=== PATIENT | female | born 1990 | race Caucasian/White ===

== ENCOUNTER 2016-07-13 10:29 | Outpatient (CLI) | payer OTHER ==
--- NOTE | 2016-07-13 12:39 | RAD ---
CHEST PA AND LATERAL: History: 26-year-old female with costochondritis. FINDINGS: Heart size is normal. The lungs are clear. No pneumonia, edema, or other acute process. IMPRESSION: No acute intrathoracic disease. POS: [facility]
== END 2016-07-13 10:30 | disposition home or self-care (01) ==
LOC: MADRAD 10:29
PROVIDERS: ATTEND Family Medicine
DX: M94.0 Chondrocostal junction syndrome [Tietze] (principal)
CPT/HCPCS: 71020

== ENCOUNTER 2016-09-01 13:56 | Outpatient (CLI) | payer OTHER ==
[2016-09-01 14:34] LABS: #Basophils 0.1 thou/uL (0.0-0.2); #Eosinphils 0.1 thou/uL (0.0-0.7); #Lymphocytes 2.6 thou/uL (1.20-3.40); #Monocytes 0.5 thou/uL (0.11-0.59); %Basophils 1.3 % (0.0-1.0); %Eosinophils 1.1 % (0.0-10.0); %Lymphocytes 25.1 % (21.0-51.0); %Monocytes 4.9 % (0.0-10.0); %Neutrophils 67.5 % (42.0-75.0); Hemoglobin 14.3 g/dL (12.0-16.0); Mean Corpuscular HGB CONC 34.7 g/dL (32.0-36.0); Mean Corpuscular Hemoglobin 30.2 pg (27.0-31.0); Mean Corpuscular Volume 87.1 fl (81.0-99.0); Mean Platelet Volume 8.3 fL (7.4-10.4); Platelet Count 296 thou/uL (130-400); RBC Distribution Width 12.3 % (11.5-14.5); Red Blood Cell (RBC) Count 4.75 mill/uL (4.20-5.40); White Blood Cell (WBC) Count 10.4 thou/uL (4.8-10.8)
--- NOTE | 2016-09-01 15:56 | RAD ---
CHEST 2 VIEWS: HISTORY: Small airway disease. COMPARISON: Chest 2 views 07/13/16. FINDINGS: No pneumothorax or effusion. Cardiac silhouette and mediastinal contours are normal. IMPRESSION: No acute cardiopulmonary process. POS: [facility]
== END 2016-09-01 13:57 | disposition home or self-care (01) ==
LOC: MADLABBHPM 13:56
PROVIDERS: ATTEND Family Medicine
DX: R53.83 Other fatigue (principal)
CPT/HCPCS: 36415; 71020; 84443; 85025

== ENCOUNTER 2019-05-07 08:02 | Outpatient (CLI) | payer OTHER ==
--- NOTE | 2019-05-07 10:47 | ULT ---
PELVIC SONOGRAM TRANSABDOMINAL AND TRANSVAGINAL IMAGING WITH DUPLEX EVALUATION: HISTORY: Pelvic pain. Prior hysterectomy. FINDINGS: Urinary bladder is decompressed. Uterus is surgically absent. No free fluid. At the expected location of the right adnexa, a heterogeneous well-circumscribed oval mass with inter nal hyperechoic and hypoechoic components measures up to 6.2 cm depth x 4.8 cm width. Internal color and spectral Doppler flow. Left ovary not visualized with transabdominal or transvaginal imaging. IMPRESSION: 1. Complex mass at the right adnexa. Normal right ovary not seen separate from the mass. Please co nsider gynecologic consultation. MRI of the female pelvis could be performed for better characteriza tion if needed. 1. Status post cholecystectomy. Nonvisualization of left ovary. POS: [facility]
== END 2019-05-07 08:03 | disposition home or self-care (01) ==
LOC: MADULT 08:02
PROVIDERS: ATTEND Family Medicine
DX: R10.2 Pelvic and perineal pain (principal); G89.29 Other chronic pain; N83.8 Other noninflammatory disorders of ovary, fallopian tube and broad ligament; Z90.49 Acquired absence of other specified parts of digestive tract
CPT/HCPCS: 76856

== ENCOUNTER 2020-11-16 14:42 | Outpatient (CLI) | payer MEDICAID ==
[2020-11-17 00:02] LABS: Syphilis Antibody Nonreactive (Nonreactive); Syphilis Antibody Index 0.04 S/CO (<1.00 Non-Reactive)
[2020-11-17 00:03] LABS: HIV (1/2) Antibody/Antigen Non-Reactive (NonReactive); HIV 1/2 INDEX 0.17 S/CO (<1.00)
[2020-11-17 21:59] LABS: Chlamydia by PCR Not Detected (NotDetected); GC by PCR Not Detected (NotDetected)
== END 2020-11-16 14:43 | disposition home or self-care (01) ==
LOC: MADLAB 14:42
PROVIDERS: ATTEND Family Medicine
DX: Z76.89 Persons encountering health services in other specified circumstances (principal); N89.8 Other specified noninflammatory disorders of vagina
CPT/HCPCS: 36415; 86780; 87389; 87480; 87491; 87510; 87591; 87660

== ENCOUNTER 2022-06-16 10:08 | Outpatient (CLI) | payer MEDICAID, SELFPAY | END 2022-06-16 10:09 | disposition home or self-care (01) | LOC: MADRAD 10:08 | PROVIDERS: ATTEND Family Medicine | DX: M25.571 Pain in right ankle and joints of right foot (principal); W18.30XA Fall on same level, unspecified, initial encounter ==

== ENCOUNTER 2022-12-19 08:16 | Emergency (ER) | payer MEDICAID, SELFPAY ==
[2022-12-19 08:58] LABS: Prothrombin Time 13.6 sec (12.0-14.7)
[2022-12-19 09:06] LABS: #Eosinphils 0.1 thou/uL (0.0-0.7); #Lymphocytes 2.5 thou/uL (1.20-3.40); #Monocytes 0.6 thou/uL (0.11-0.59); #Neutrophils 6.5 thou/uL (1.40-6.50); %Basophils 0.8 % (0.0-1.0); %Eosinophils 0.6 % (0.0-10.0); %Lymphocytes 25.8 % (21.0-51.0); %Monocytes 6.4 % (0.0-10.0); %Neutrophils 66.2 % (42.0-75.0); Hematocrit 40.2 % (36.0-47.0); Hemoglobin 13.5 g/dL (12.0-16.0); Mean Corpuscular HGB CONC 33.6 g/dL (32.0-36.0); Mean Corpuscular Hemoglobin 29.5 pg (27.0-31.0); Mean Corpuscular Volume 87.8 fl (78.0-98.0); Mean Platelet Volume 9.9 fL (7.4-10.4); Platelet Count 303 10x3/uL (130-400); Red Blood Cell (RBC) Count 4.57 mill/uL (4.20-5.40); White Blood Cell (WBC) Count 9.8 10x3/uL (4.8-10.8)
[2022-12-19 09:07] LABS: #Basophils 0.1 thou/uL (0.0-0.2)
[2022-12-19 09:17] LABS: ALT (SGPT) 15 U/L (8-55); AST (SGOT) 17 U/L (5-34); Albumin 3.9 g/dL (3.5-5.0); Alkaline Phosphatase 78 U/L (40-110); Anion Gap 15 mmol/L (10-20); BUN (Urea Nitrogen) 7 mg/dL (7.0-18.7); Bilirubin, Total 0.9 mg/dL (0.2-1.2); Calc. Creatinine Clearance 0 mL/min (70-130); Carbon Dioxide 22 mmol/L (22-29); Chloride 108 mmol/L (98-107); Estimated GFR 99; Globulin 3.1 g/dL (2.4-3.5); Glucose 77 mg/dL (70-105); Potassium 3.8 mmol/L (3.5-5.1); Sodium 141 mmol/L (136-145)
== END 2022-12-19 10:08 | disposition home or self-care (01) ==
LOC: MADERS 08:16
DX: K92.1 Melena (principal); F17.210 Nicotine dependence, cigarettes, uncomplicated
CPT/HCPCS: 80053; 82274; 85025; 85610; 99284

== ENCOUNTER 2023-01-31 11:54 | Emergency (ER) | payer SELFPAY ==
[~2023-01-31 11:54] MED LIST: Iopamidol 370 76% 100 ML VIAL ONE
[2023-01-31] MEDS ORDERED: Acetaminophen 325 MG TAB ONE (12:15)
[2023-01-31] MEDS ORDERED: Dexamethasone 10 MG/ML VIAL ONE (12:15)
[2023-01-31] MEDS ORDERED: Sodium Chloride 0.9% 1,000 ML ONE (12:15)
[2023-01-31] MEDS ORDERED: Ketorolac Tromethamine 30 MG/ML VIAL ONE (12:15)
[2023-01-31 12:46] LABS: ALT (SGPT) 12 U/L (8-55); AST (SGOT) 16 U/L (5-34); Alkaline Phosphatase 69 U/L (40-110); Anion Gap 15 mmol/L (10-20); BUN (Urea Nitrogen) 6 mg/dL (7.0-18.7); Bilirubin, Total 1.2 mg/dL (0.2-1.2); Calc. Creatinine Clearance 0 mL/min (70-130); Calcium 9.1 mg/dL (7.8-10.44); Carbon Dioxide 19 mmol/L (22-29); Chloride 104 mmol/L (98-107); Estimated GFR 93; Globulin 3.2 g/dL (2.4-3.5); Glucose 102 mg/dL (70-105); Magnesium 1.9 mg/dL (1.6-2.6); Potassium 3.7 mmol/L (3.5-5.1); Protein, Total 7.2 g/dL (6.0-8.3); Sodium 134 mmol/L (136-145)
[2023-01-31 12:51] LABS: BHCG - Serum Negative (NEGATIVE); Pregs Control Background? CLEAR/WHITE (CLR/WHITE); Pregs Control Bar Appear? YES (CONTROL BAR)
[2023-01-31 13:04] LABS: Hematocrit 42.1 % (36.0-47.0); Hemoglobin 13.7 g/dL (12.0-16.0); Mean Corpuscular HGB CONC 32.6 g/dL (32.0-36.0); Mean Corpuscular Hemoglobin 29.1 pg (27.0-31.0); Mean Corpuscular Volume 89.2 fl (78.0-98.0); Mean Platelet Volume 9.3 fL (7.4-10.4); Platelet Count 269 10x3/uL (130-400); Red Blood Cell (RBC) Count 4.72 mill/uL (4.20-5.40); White Blood Cell (WBC) Count 18.1 10x3/uL (4.8-10.8)
[2023-01-31 13:05] LABS: Anisocytosis SLIGHT = 6-15 cells (100X) (0-5/hpf); Band 4 % (5-11); Lymphocytes 10 % (21-51); MDiff Complete? YES; Manual Diff?? YES; Monocytes 1 % (0-10); Neutrophil 85 % (42-75); Platelet Adequacy Comment Appears Adequate
[2023-01-31 13:18] LABS: SARS-CoV-2 NAA Rapid Test Not Detected (NotDetected)
[2023-01-31] MEDS ORDERED: Sodium Chloride 0.9% 100 ML ONE (13:48)
[2023-01-31] MEDS ORDERED: Ampicillin/Sulbactam 3 GM VIAL ONE (13:48)
== END 2023-01-31 14:38 | disposition home or self-care (01) ==
LOC: MADERS 11:54
DX: J02.9 Acute pharyngitis, unspecified (principal); E66.9 Obesity, unspecified; F17.210 Nicotine dependence, cigarettes, uncomplicated; Z20.822 Contact with and (suspected) exposure to COVID-19
CPT/HCPCS: 70491; 80053; 83735; 84703; 85025; 87040; 87081; 87430; 96365; 96375; J0295; J1100; J1885; J3490; J7050; Q9967